=== PATIENT | female | born 1975 | race Hispanic/Latino ===

== ENCOUNTER 2020-09-20 07:06 | Outpatient (CLI) | payer MEDICARE, MEDICAID ==
[2020-09-21 04:25] LABS: SARS-CoV-2 MS2 Positive; SARS-CoV-2 N Gene Negative; SARS-CoV-2 S Gene Negative; SARS-CoV-2 by NAA Not Detected (NotDetected); SARS-CoV-2 orf1ab Negative
== END 2020-09-20 07:07 | disposition home or self-care (01) ==
LOC: LABBT 07:06
PROVIDERS: ATTEND Orthopaedic Surgery
DX: Z01.812 Encounter for preprocedural laboratory examination (principal); M77.12 Lateral epicondylitis, left elbow; M77.02 Medial epicondylitis, left elbow; Z20.828 Contact with and (suspected) exposure to other viral communicable diseases
CPT/HCPCS: 87635; U0003

== ENCOUNTER 2020-09-25 08:28 | Day surgery (SDC) | payer MEDICARE, MEDICAID ==
[2020-09-24 11:59] VITALS: BMI 28.3
[2020-09-25] MEDS ORDERED: Lidocaine 1% PF 5 ML VIAL ONE (09:55)
[2020-09-25] MEDS ORDERED: PROPOFOL 200 MG/20 ML VIAL ONE (09:55)
[2020-09-25] MEDS ORDERED: Succinylcholine 200 MG/10 ml SYRINGE FS ONE (09:55)
[2020-09-25] MEDS ORDERED: Ondansetron PF 4 MG/2 ML Vial ONE (09:55)
[2020-09-25] MEDS ORDERED: Midazolam HCl 2 mg/2 ml Vial ONE ×2 (10:48→13:31)
[2020-09-25] MEDS ORDERED: Fentanyl 100 MCG/2 ML VIAL ONE ×3 (10:48→13:10)
[2020-09-25] MEDS ORDERED: Bupivacaine PF 0.5% 30 ML VIAL ONE (11:04)
[2020-09-25] MEDS ORDERED: Lidocaine 1% w/Epinephrine 1:100K 20 ML VIAL ONE (11:04)
[2020-09-25] MEDS ORDERED: Ketorolac Tromethamine 30 MG/ML VIAL ONE (11:58)
[2020-09-25] MEDS ORDERED: Sodium Chloride 0.9% 10 ML ONE (12:05)
[2020-09-25] MEDS ORDERED: HYDROmorphone 0.5 MG/0.5 ML SYRINGE ONE ×4 (12:11→12:49)
--- NOTE | 2020-09-25 12:51 | OP ---
DATE OF PROCEDURE: 09/25/2020 PREOPERATIVE DIAGNOSIS: Left medial epicondylitis and lateral epicondylitis. POSTOPERATIVE DIAGNOSIS: Left medial epicondylitis and lateral epicondylitis. PROCEDURE PERFORMED: Left medial epicondylectomy and left lateral epicondylectomy. ANESTHESIA: General. ESTIMATED BLOOD LOSS: Minimal. SPECIMEN: None. DRAINS: None. COMPLICATIONS: None. DESCRIPTION OF PROCEDURE: The patient was taken to the operating room, where general anesthesia induced. Left arm was prepped and draped in usual sterile fashion. I made a lateral incision over the lateral epicondyle. Dissection was carried down to the common extensor origin. This was peeled off bone sharply under magnification and visualization. I performed a lateral epicondylectomy, taking a portion of the bone off. I removed the undersurface of the common extensor origin. I then anesthetized the area with 0.5% Marcaine for postoperative pain relief. Irrigation was performed. I repaired the common extensor origin with 3-0 Vicryl suture in the subcu and skin with Prolene. On the medial side I performed the same procedure. I performed a linear incision. Dissection was carried down to the common flexor origin. The common flexor origin was dissected off bone sharply while protecting the ulnar nerve. I performed medial condylectomy. I dissected the undersurface of the common extensor origin, got down to good viable tissue. The common extensor origin was repaired back with 2-0 Vicryl. The subcutaneous tissue was closed with 3-0 Vicryl. I anesthetized the skin with Marcaine. The skin was closed with Prolene and sterile dressings applied. There were no complications. Job ID: [id number]
[2020-09-25] MEDS ORDERED: HYDROcodone/Acetaminophen 5/325 mg Tablet ONE (13:12)
== END 2020-09-25 15:45 | disposition home or self-care (01) ==
LOC: SDC 08:28
PROVIDERS: ATTEND Orthopaedic Surgery
PROC: 0PBG0ZZ Excision of Left Humeral Shaft, Open Approach (ICD-10-PCS; principal; 2020-09-25)
DX: M77.02 Medial epicondylitis, left elbow (principal); M77.12 Lateral epicondylitis, left elbow; M77.01 Medial epicondylitis, right elbow; M77.11 Lateral epicondylitis, right elbow; G43.909 Migraine, unspecified, not intractable, without status migrainosus; K31.84 Gastroparesis; Z79.52 Long term (current) use of systemic steroids; Z79.899 Other long term (current) drug therapy; Z88.8 Allergy status to other drugs, medicaments and biological substances
CPT/HCPCS: J0690; J1170; J1885; J2250; J2405; J2704; J3010; S0020

== ENCOUNTER 2022-10-03 08:09 | Outpatient (CLI) | payer MEDICARE, MEDICAID | END 2022-10-03 08:10 | disposition home or self-care (01) | LOC: BICRAD 08:09 | PROVIDERS: ATTEND Physician Assistant Medical | DX: K59.09 Other constipation (principal) | CPT/HCPCS: 74018 ==

== ENCOUNTER 2022-10-06 08:30 | Outpatient (CLI) | payer MEDICARE, MEDICAID | END 2022-10-06 08:31 | disposition home or self-care (01) | LOC: BICRAD 08:30 | PROVIDERS: ATTEND Physician Assistant Medical | DX: K59.09 Other constipation (principal) | CPT/HCPCS: 74018 ==

== ENCOUNTER 2023-04-16 04:01 | Observation (INO) | payer MEDICARE, MEDICAID ==
[2023-04-16] MEDS ORDERED: Prochlorperazine 10 MG/2 ML VIAL ONE (04:40)
[2023-04-16] MEDS ORDERED: Dihydroergotamine Mesylate 1 MG/ML AMP SLOW IVP SCH (04:45)
[2023-04-16 05:25] LABS: Bacteria/HPF None Seen HPF (None Seen); Bilirubin Negative (Negative); Blood, Urine Negative (Negative); CAUTI Indications for Culture Pelvic or flank pain; Clarity Clear (Clear); Glucose, Urine (Dipstick) Normal (Negative); Ketone, Urine 10 mg/dL (Negative); Leukocyte Negative Leu/uL (Negative); Nitrite Negative (Negative); Protein, Urine (Dipstick) Negative (Neg-Trace); RBC/HPF 0-3 HPF (0-3); Specific Gravity, Urine 1.012 (1.002-1.036); Squamous Epithelial 0-3 HPF (0-3); Urobilinogen Normal mg/dL (Less than 2); WBC/HPF 0-3 HPF (0-3); pH, Urine 5.5 (5.0-9.0)
[2023-04-16 05:27] LABS: Urine Culture Reflex No No
[2023-04-16] MEDS ORDERED: Prochlorperazine 10 MG/2 ML VIAL IVP SCH (07:30)
[2023-04-16] MEDS ORDERED: hydrALAZINE 20 MG/ML VIAL SLOW IVP PRN (08:56)
[2023-04-16] MEDS ORDERED: HYDROcodone/Acetaminophen 5/325 mg Tablet PO PRN (08:56)
[2023-04-16] MEDS ORDERED: Acetaminophen 325 MG TAB PO PRN (08:56)
[2023-04-16] MEDS ORDERED: Ondansetron PF 4 MG/2 ML Vial IVP PRN (08:56)
[2023-04-16] MEDS ORDERED: Levothyroxine Sodium 100 MCG TAB PO SCH (10:30)
[2023-04-16 10:45] LABS: Hemoglobin A1c 5.9 % (4.0-6.0)
[2023-04-16 10:50] LABS: Cardiac Risk 4.4 (Less than 4.5)
[2023-04-16 11:41] LABS: Syphilis Antibody Nonreactive (Nonreactive); Syphilis Antibody Index 0.08 S/CO (<1.00 Non-Reactive)
[2023-04-16] MEDS ORDERED: Magnevist 469MG/ML 20 ML VIAL ONE (15:47)
[2023-04-16] MEDS ORDERED: Lactated Ringer's 500 ML IV SCH (16:45)
[2023-04-16 17:21] VITALS: BMI 27.1
[2023-04-16] MEDS: Dihydroergotamine Mesylate 1 MG/ML AMP SLOW IVP SCH ×2 (17:48→23:24)
[2023-04-16 18:29] LABS: Amphetamine Not Detected (NotDetected); Barbiturates Screen Not Detected (NotDetected); Benzodiazepine Screen Not Detected (NotDetected); Cocaine Metabolite Screen Not Detected (NotDetected); Methadone Not Detected (NotDetected); Methamphetamine Not Detected (NotDetected); Opiate Screen Not Detected (NotDetected); Oxycodone Screen Not Detected (NotDetected); Phencyclidine (PCP) Not Detected (NotDetected); THC/Cannabinoid Screen Not Detected (NotDetected); Tricyclic Screen Not Detected (NotDetected)
[2023-04-16] MEDS ORDERED: Topiramate 25 MG TAB PO SCH (21:00)
[2023-04-17 05:29] LABS: #Basophils 0.1 thou/uL (0.0-0.2); #Eosinphils 0.1 thou/uL (0.0-0.7); #Monocytes 0.4 thou/uL (0.11-0.59); #Neutrophils 2.9 thou/uL (1.40-6.50); %Basophils 0.8 % (0.0-1.0); %Eosinophils 1.8 % (0.0-10.0); %Lymphocytes 54.7 % (21.0-51.0); %Monocytes 5.5 % (0.0-10.0); %Neutrophils 37.1 % (42.0-75.0); Hemoglobin 12.8 g/dL (12.0-16.0); Mean Corpuscular HGB CONC 32.6 g/dL (32.0-36.0); Mean Corpuscular Hemoglobin 27.7 pg (27.0-31.0); Mean Corpuscular Volume 85.1 fl (78.0-98.0); Mean Platelet Volume 10.1 fL (7.4-10.4); Platelet Count 290 10x3/uL (130-400); RBC Distribution Width 14.5 % (11.5-14.5); Red Blood Cell (RBC) Count 4.62 mill/uL (4.20-5.40); White Blood Cell (WBC) Count 7.9 10x3/uL (4.8-10.8)
[2023-04-17 05:57] LABS: Anion Gap 12 mmol/L (10-20); BUN (Urea Nitrogen) 9 mg/dL (7.0-18.7); Calc. Creatinine Clearance 106 mL/min (70-130); Calcium 8.5 mg/dL (7.8-10.44); Carbon Dioxide 26 mmol/L (22-29); Cardiac Risk 5.5 (Less than 4.5); Chloride 106 mmol/L (98-107); Cholesterol 149 mg/dl (< 200 Desired); Estimated GFR 99; Glucose 99 mg/dL (70-105); HDL Cholesterol 27 mg/dL (>60 Neg Risk); LDL Cholesterol, Calculated 85 mg/dL; Potassium 3.6 mmol/L (3.5-5.1); Sodium 140 mmol/L (136-145); Triglycerides 185 mg/dL (Less than 150)
[2023-04-17] MEDS ORDERED: Levothyroxine Sodium 100 MCG TAB PO SCH (06:00)
[2023-04-17] MEDS: Dihydroergotamine Mesylate 1 MG/ML AMP SLOW IVP SCH (08:53)
[2023-04-17 12:21] VITALS: TEMP 97.9
[2023-04-17 13:21] VITALS: BP 130/69
[2023-04-19 18:01] LABS: CCP IgG Antibody 1.3 EliAU/mL (<7 Negative); Rheumatoid Factor IgA Antibody 2.7 IU/mL (<14 Negative); Rheumatoid Factor IgM Antibody 2.4 IU/mL (<3.5 Negative)
== END 2023-04-17 13:47 | disposition home or self-care (01) ==
LOC: ERS 04:01 → SUATTDRO 04:01 → ERHOLD 08:18 → NEURO 15:21
PROVIDERS: ADMIT Internal Medicine; ATTEND Internal Medicine
DX: G43.909 Migraine, unspecified, not intractable, without status migrainosus (principal); Z88.8 Allergy status to other drugs, medicaments and biological substances; Z79.890 Hormone replacement therapy; Z79.899 Other long term (current) drug therapy; E03.9 Hypothyroidism, unspecified; K31.84 Gastroparesis; Z90.49 Acquired absence of other specified parts of digestive tract; Z90.89 Acquired absence of other organs; Z90.710 Acquired absence of both cervix and uterus
CPT/HCPCS: 70544; 70553; 80048; 80061 ×2; 80306; 81001; 83036; 83090; 83520; 84443; 85025; 85652; 86200; 86780; 96361; 96374; 96375 ×2; 96376 ×3; 99285; G0378 ×3; 36415; A9579; J0780; J1110; J2405; J7120

== ENCOUNTER 2023-06-25 15:46 | Outpatient (CLI) | payer MEDICARE, MEDICAID | END 2023-06-25 15:47 | disposition home or self-care (01) | LOC: BICMAMMO 15:46 | PROVIDERS: ATTEND Family Medicine | DX: Z12.31 Encounter for screening mammogram for malignant neoplasm of breast (principal); N63.10 Unspecified lump in the right breast, unspecified quadrant; N63.20 Unspecified lump in the left breast, unspecified quadrant; Z80.3 Family history of malignant neoplasm of breast | CPT/HCPCS: 77063; 77067 ==

== ENCOUNTER 2023-06-30 14:12 | Outpatient (CLI) | payer MEDICARE, MEDICAID | END 2023-06-30 14:13 | disposition home or self-care (01) | LOC: BICMAMMO 14:12 | PROVIDERS: ATTEND Family Medicine | DX: N63.11 Unspecified lump in the right breast, upper outer quadrant (principal); N63.22 Unspecified lump in the left breast, upper inner quadrant; N64.89 Other specified disorders of breast | CPT/HCPCS: 76642 ×2; 77065; G0279 ==

== ENCOUNTER 2024-01-27 09:32 | Outpatient (CLI) | payer OTHER, MEDICAID | END 2024-01-27 09:33 | disposition home or self-care (01) | LOC: BICMAMMO 09:32 | PROVIDERS: ATTEND Family Medicine | DX: R92.8 Other abnormal and inconclusive findings on diagnostic imaging of breast (principal); N63.15 Unspecified lump in the right breast, overlapping quadrants | CPT/HCPCS: 76642; 77065; G0279 ==